=== PATIENT | male | born 1960 | race Caucasian/White ===

== ENCOUNTER 2018-03-03 07:23 | Day surgery (SDC) | payer BC ==
[2018-02-28 08:37] VITALS: BMI 28.7
[2018-03-03] MEDS ORDERED: PROPOFOL 20 ML ONE ×2 (07:27)
[2018-03-03] MEDS ORDERED: LIDOCAINE HCL/PF 2% SDV 5ML VIAL ONE (07:27)
[2018-03-03 09:43] VITALS: TEMP 98.1
[2018-03-03 10:10] VITALS: BP 115/71; PULSE 64
== END 2018-03-03 10:10 | disposition home or self-care (01) ==
LOC: FASU-ENDO 07:23
PROVIDERS: ATTEND Internal Medicine Gastroenterology
PROC: 0DBK8ZX Excision of Ascending Colon, Via Natural or Artificial Opening Endoscopic, Diagnostic (ICD-10-PCS; principal; 2018-03-03 09:02)
PROC: 3E0H8GC Introduction of Other Therapeutic Substance into Lower GI, Via Natural or Artificial Opening Endoscopic (ICD-10-PCS; 2018-03-03 09:02)
DX: Z12.11 Encounter for screening for malignant neoplasm of colon (principal); K57.30 Diverticulosis of large intestine without perforation or abscess without bleeding; D12.2 Benign neoplasm of ascending colon
CPT/HCPCS: 82962; 88305-TC

== ENCOUNTER 2020-08-08 07:15 | Day surgery (SDC) | payer BC ==
[2020-08-07 14:46] VITALS: BMI 30.2
[2020-08-08] MEDS ORDERED: PROPOFOL 20 ML ONE ×3 (07:25)
[2020-08-08] MEDS ORDERED: LIDOCAINE HCL/PF 2% SDV 5ML VIAL ONE (07:25)
[2020-08-08 07:48] VITALS: TEMP 98.9
[2020-08-08 09:42] VITALS: BP 119/69; PULSE 69
== END 2020-08-08 09:55 | disposition home or self-care (01) ==
LOC: FASU-ENDO 07:15
PROVIDERS: ATTEND Internal Medicine Gastroenterology
PROC: 0DBM8ZX Excision of Descending Colon, Via Natural or Artificial Opening Endoscopic, Diagnostic (ICD-10-PCS; 2020-08-08)
PROC: 0DBM8ZX Excision of Descending Colon, Via Natural or Artificial Opening Endoscopic, Diagnostic (ICD-10-PCS; principal; 2020-08-08 08:26)
DX: Z09 Encounter for follow-up examination after completed treatment for conditions other than malignant neoplasm (principal); Z86.010 Personal history of colon polyps; D12.4 Benign neoplasm of descending colon; K57.30 Diverticulosis of large intestine without perforation or abscess without bleeding
CPT/HCPCS: 82962; 88305-TC